=== PATIENT | female | born 1945 | race Asian ===

== ENCOUNTER 2023-05-28 04:00 | Emergency (ER) | payer OTHER ==
[~2023-05-28] VITALS: Ht 147.3 cm; Wt 54.4 kg
[2023-05-28 04:03] VITALS: BP 84/58; PULSE 74; RESP 15; TEMP 97.9; O2SAT 98
[2023-05-28] MEDS: NACL 0.9% 1,000 ML IV ONE (04:38)
[2023-05-28 04:41] VITALS: TEMP 97.9
[2023-05-28] MEDS: ASPIRIN 325 MG TAB PO ONE (04:41)
[2023-05-28 04:49] LABS: BASOPHILS % (AUTO) 0.3 % (0.0-2.0); EOSINOPHILS # (AUTO) 0.4 K/uL (0-0.4); EOSINOPHILS % (AUTO) 2.3 % (0.0-4.0); HEMATOCRIT 35.7 % (36-48); HEMOGLOBIN 12.8 g/dL (12.0-16.0); LYMPHOCYTES # (AUTO) 2.3 K/uL (2.5-16.5); LYMPHOCYTES % (AUTO) 14.2 % (20.5-51.1); MEAN CORPUSCULAR HEMOGLOBIN 31 pg (27-31); MEAN CORPUSCULAR HGB CONC 36 g/dL (33-37); MEAN CORPUSCULAR VOLUME 86.9 fL (80-94); MONOCYTES # (AUTO) 0.7 K/uL (0.8-1.0); MONOCYTES % (AUTO) 4.4 % (1.7-9.3); NEUTROPHILS % (AUTO) 78.8 % (42.2-75.2); PLATELET COUNT (AUTO) 296 K/uL (140-450); RED BLOOD CELL COUNT(AUTO) 4.11 MIL/uL (4.20-5.40); RED CELL DISTRIBUTION WIDTH 13.9 % (11.6-13.7); WHITE BLOOD COUNT (AUTO) 16.4 K/uL (4.8-10.8)
[2023-05-28] MEDS: ONDANSETRON 4 MG/2 ML VIAL IVP ONE (04:55)
[2023-05-28] MEDS ORDERED: NOREPINEPHRINE 4 MG/4 ML VIAL IV ONE (04:59)
[2023-05-28 05:02] LABS: ALANINE AMINOTRANSFERASE 22 U/L (12-78); ALKALINE PHOSPHATASE 58 U/L (50-136); ANION GAP 17.6 (8-16); ASPARTATE AMINOTRANSFERASE 45 U/L (15-37); CARBON DIOXIDE 21.9 mmol/L (21-32); CHLORIDE 97 mmol/L (98-107); CREATININE 1.2 mg/dL (0.6-1.3); GLUCOSE 155 mg/dL (74-106); POTASSIUM 3.5 mmol/L (3.5-5.1); SODIUM SERUM 133 mmol/L (136-145); TOTAL BILIRUBIN 1.1 mg/dL (0.0-1.0); TOTAL PROTEIN, SERUM 7.1 g/dL (6.4-8.2); UREA NITROGEN, BLOOD 15 mg/dL (7-18)
[2023-05-28] MEDS: NOREPINEPHRINE 4 MG in DEXTROSE 5% 250 ML IV ONE (05:05)
[2023-05-28] MEDS ORDERED: HEPARIN PER PHARMACY MC PRN (05:15)
[2023-05-28] MEDS ORDERED: EPINEPHrine 1 mg/mL 10 MG in DEXTROSE 5% 250 ML IV PRN (05:15)
[2023-05-28] MEDS ORDERED: DOPamine 400 MG/D5W PREMIX 250 ML IV PRN (05:40)
[2023-05-28] MEDS ORDERED: hePARIN / DEXT 5% PREMIX 250 ML IV ONE (05:41)
[2023-05-28] MEDS ORDERED: hePARIN / DEXT 5% PREMIX 250 ML IV SCH (05:45)
[2023-05-28 05:52] LABS: INR 0.99 (0.8-1.2); PARTIAL THROMBOPLASTIN TIME 24.8 secs (22-35.6); PROTHROMBIN TIME 10.4 secs (10.8-13.4)
[2023-05-28] MEDS ORDERED: CODE BLUE PARTICIPANT 1 EA MISC MC ONE (06:00)
[2023-05-28 07:00] VITALS: BP 90/48; PULSE 83; RESP 18; O2SAT 98
[2023-05-28] MEDS ORDERED: PIPERACILLIN/TAZOBACTAM 3.375 GM in DEXTROSE 5% 50 ML IV ONE ×2 (07:10→07:40)
[2023-05-28] MEDS ORDERED: VANCOMYCIN 1,000 MG in DEXTROSE 5% 250 ML IV ONE (07:10)
[2023-05-28] MEDS ORDERED: fentaNYL citrate 0.05 MG/ML VIAL IVP ONE (07:30)
[2023-05-28] MEDS ORDERED: DEXTROSE 50% 50 ML SYR IVP PRN (07:40)
[2023-05-28] MEDS ORDERED: VANCOMYCIN PER PHARMACY MC PRN (07:40)
[2023-05-28] MEDS ORDERED: INSULIN LISPRO SLIDING SCALE 100 UNITS/ML VIAL SUBQ PRN (07:40)
[2023-05-28] MEDS ORDERED: NACL 0.9% 1,000 ML IV SCH (07:50)
[2023-05-28] MEDS ORDERED: DOPPLER MC ONE (07:51)
[2023-05-28] MEDS ORDERED: SODIUM BICARBONATE 8.4% PFS 50 MEQ/50 ML SYR IVP ONE (07:56)
[2023-05-28 07:59] LABS: LACTIC ACID 3.8 mmol/L (0.4-2.0)
[2023-05-28] MEDS ORDERED: EPINEPHrine PFS 0.1 MG/ML SYR IVP ONE (07:59)
[2023-05-28 10:09] LABS: BLOOD GAS BASE EXCESS -20.3 mmol/L (-2.0-2.0); BLOOD GAS PCO2 39.9 mmHg (35-45); BLOOD GAS PH 7.015 (7.35-7.45); BLOOD GAS PO2 34.9 mmHg (75-100)
[2023-05-28 10:10] LABS: BLOOD GAS O2 SAT% 46.4 % (92.0-98.5)
[2023-05-28] MEDS: ATROPINE 1 MG/10 ML SYR IVP ONE ×2 (11:24→11:28)
[2023-05-28] MEDS ORDERED: BLOOD GLUCOSE MONITORING 1 DEV DEV FS SCH (11:30)
[2023-05-28] MEDS ORDERED: PIPERACILLIN/TAZOBACTAM 3.375 GM in DEXTROSE 5% 50 ML IV SCH (13:00)
== END 2023-05-28 08:13 ==
LOC: MED 04:00
DX: I21.4 Non-ST elevation (NSTEMI) myocardial infarction (principal); R57.0 Cardiogenic shock; I95.9 Hypotension, unspecified; D72.829 Elevated white blood cell count, unspecified; E87.20 Acidosis, unspecified; I50.1 Left ventricular failure, unspecified; R00.1 Bradycardia, unspecified; J96.00 Acute respiratory failure, unspecified whether with hypoxia or hypercapnia
CPT/HCPCS: 36415; 36561; 71045; 71275; 72170; 74174; 80053; 82948; 83605; 83880; 84484; 85025; 85379; 85610; 85730; 87040; 92950; 93005; 96361; 96365; 96375; 99291; 99292; J0171; J1644; J2405; J3490; J7030; Q0092; Q9967; 96366